=== PATIENT | female | born 1940 | race Caucasian/White ===

== ENCOUNTER 2018-05-17 15:54 | Outpatient (CLI) | payer MEDICARE, OTHER ==
[2018-05-17 16:44] LABS: BASOPHILS % (AUTO) 0.8 %; EOSINOPHILS # (AUTO) 0.1 10^3/uL (0.0-0.7); EOSINOPHILS % (AUTO) 1.1 %; LYMPHOCYTES # (AUTO) 1.5 10^3/uL (1.5-3.5); LYMPHOCYTES % (AUTO) 27.2 %; MEAN CORPUSCULAR HEMOGLOBIN 35.3 pg (27.0-31.0); MEAN CORPUSCULAR HGB CONC 34.6 g/dL (32.0-36.0); MEAN PLATELET VOLUME 8.3 fL (7.9-10.8); MONOCYTES # (AUTO) 0.4 10^3/uL (0.0-1.0); MONOCYTES % (AUTO) 7.8 %; NEUTROPHILS # (AUTO) 3.4 10^3/uL (1.5-6.6); NEUTROPHILS % (AUTO) 63.1 %; PLT - PLATELET COUNT 202 10^3/uL (130-450); RED BLOOD COUNT 3.68 10^6/uL (4.20-5.40); RED CELL DISTRIBUTION WIDTH 12.5 % (12.0-15.0); WHITE BLOOD COUNT 5.4 x10^3/uL (4.8-10.8)
[2018-05-17 17:03] LABS: ALBUMIN 4.3 g/dL (3.2-5.5); ALKALINE PHOSPHATASE 59 IU/L (42-121); ALT ALANINE AMINOTRANSFERASE 13 IU/L (10-60); AST ASPARTATE AMINOTRANSFERASE 20 IU/L (10-42); BILIRUBIN,TOTAL 0.9 mg/dL (0.2-1.0); BUN - BLOOD UREA NITROGEN 10 mg/dL (6-20); CALCIUM 9.3 mg/dL (8.5-10.3); CARBON DIOXIDE - CO2 24 mmol/L (21-32); CHLORIDE 99 mmol/L (101-111); CHOL/HDL RATIO 2.3 (<4.4); CHOLESTEROL 187 mg/dL; CREATININE 0.6 mg/dL (0.4-1.0); GFR - MDRD 97 (>89); GLUCOSE 84 mg/dL (70-100); HDL CHOLESTEROL 81 mg/dL; SODIUM 132 mmol/L (135-145); TOTAL PROTEIN 6.5 g/dL (6.7-8.2)
[2018-05-17 17:38] LABS: LDL CHOLESTEROL,DIRECT 97 mg/dL; LDLD/HDL RATIO 1.2 (<4.4)
== END 2018-05-17 15:55 | disposition home or self-care (01) ==
LOC: LAB 15:54
PROVIDERS: ATTEND Physician Assistant
DX: D75.89 Other specified diseases of blood and blood-forming organs (principal); M81.0 Age-related osteoporosis without current pathological fracture; Z01.812 Encounter for preprocedural laboratory examination; Z13.1 Encounter for screening for diabetes mellitus; Z13.220 Encounter for screening for lipoid disorders
CPT/HCPCS: 36415; 80053; 80061; 82306; 83721; 85025

== ENCOUNTER 2018-05-18 13:56 | Outpatient (CLI) | payer MEDICARE, OTHER | END 2018-05-18 13:57 | disposition home or self-care (01) | LOC: RT 13:56 | PROVIDERS: ATTEND Physician Assistant | DX: Z13.6 Encounter for screening for cardiovascular disorders (principal) | CPT/HCPCS: 93005 ==

== ENCOUNTER 2018-07-18 08:09 | Outpatient (CLI) | payer MEDICARE, OTHER ==
--- NOTE | 2018-07-24 15:31 | DEXA Report ---
Reason: OSTEOPOROSIS Procedure Date: 07/18/2018 Accession Number: [id number] / [id number] Procedure: DEX - Dexa Forearm CPT Code: FULL RESULT: EXAM: Dexa Spine and /or Hip, Dexa Forearm DATE: 07/18/2018 8:41 AM CLINICAL HISTORY: POST MENOPAUSAL TECHNIQUE: Dual energy x-ray absorptiometry (DXA) was performed on a [employer] System. Regions measured are the AP Spine, femoral neck, and if needed forearm. COMPARISON: None. In accordance with the International Society for Clinical Densitometry (ISCD) guidelines, data from previous exams may be reanalyzed using current recommendations and techniques. This is done to allow a more accurate basis for comparison with the current study. FINDINGS: The data for the lumbar spine is as follows: BMD (g/cm/cm) T-SCORE Z-SCORE REGION L1 0.927 -1.7 0.7 L2 0.942 -2.2 0.2 L3 1.032 -1.4 0.9 L4 1.115 -0.7 1.6 TOTAL 1.000 -1.5 0.8 NOTE: All evaluable vertebrae are used for classification The data for the Left forearm is as follows: BMD (g/cm/cm) T-SCORE Z-SCORE REGION 1/3 0.579 -3.4 -1.0 NOTE: The 33% radius of the nondominant forearm is used for classification. * Denotes significant change at the 95% confidence level. Denotes dissimilar scan types or analysis methods. IMPRESSION: THE WHO CLASSIFICATION BASED ON THE INTERNATIONAL REFERENCE STANDARD IS OSTEOPOROSIS. THE FRACTURE RISK IS HIGH. RECOMMENDATION: Patients with diagnosis of osteoporosis or osteopenia should have regular bone mineral density assessment. For those eligible for Medicare, routine testing is allowed once every 2 years. Testing frequency can be increased for patients who have rapidly progressing disease or for those who are receiving medical therapy to restore bone mass. COMMENT: World Health Organization (WHO) definitions for osteoporosis and osteopenia: NORMAL BMD: T-score at -1.0 or higher, fracture risk is low. OSTEOPENIA BMD: T-score between -1.0 and -2.5, fracture risk is increased. OSTEOPOROSIS BMD: T-score at -2.5 or lower, fracture risk is high. National Osteoporosis Foundation recommends: 1. Obtain adequate dietary calcium (at least 1200 mg per day) and vitamin D (400-800 international units per day). 2. Participate, as appropriate, in regular weightbearing and muscle-strengthening exercise. 3. Avoid tobacco use and reduce alcohol and caffeine intake. 4. For more detailed information see the website at www.NOF.org
--- NOTE | 2018-07-24 15:33 | DEXA Report ---
Reason: POST MENOPAUSAL Procedure Date: 07/18/2018 Accession Number: [id number] / [id number] Procedure: DEX - Dexa Spine and/or Hip CPT Code: FULL RESULT: FINDINGS: IMPRESSION: For results - please reference the DEXA Forearm report for 07/18/2018.
== END 2018-07-18 08:10 | disposition home or self-care (01) ==
LOC: DI 08:09
PROVIDERS: ATTEND Physician Assistant
DX: M81.0 Age-related osteoporosis without current pathological fracture (principal); Z78.0 Asymptomatic menopausal state
CPT/HCPCS: 77080; 77081

== ENCOUNTER 2019-09-28 08:01 | Outpatient (CLI) | payer MEDICARE, OTHER ==
[2019-09-28 08:26] LABS: CREATININE 0.8 mg/dL (0.4-1.0)
[2019-09-28 09:18] LABS: BASOPHILS # (AUTO) 0.1 10^3/uL (0.0-0.1); BASOPHILS % (AUTO) 1.3 %; EOSINOPHILS # (AUTO) 0.2 10^3/uL (0.0-0.7); EOSINOPHILS % (AUTO) 4.4 %; LYMPHOCYTES # (AUTO) 1.6 10^3/uL (1.5-3.5); LYMPHOCYTES % (AUTO) 35.7 %; MEAN CORPUSCULAR HEMOGLOBIN 33.3 pg (27.0-31.0); MEAN CORPUSCULAR HGB CONC 32.5 g/dL (32.0-36.0); MEAN CORPUSCULAR VOLUME 102.6 fL (81.0-99.0); MEAN PLATELET VOLUME 11.1 fL (7.9-10.8); MONOCYTES # (AUTO) 0.5 10^3/uL (0.0-1.0); MONOCYTES % (AUTO) 10.7 %; NEUTROPHILS # (AUTO) 2.2 10^3/uL (1.5-6.6); NEUTROPHILS % (AUTO) 47.2 %; PLT - PLATELET COUNT 185 10^3/uL (130-450); RED CELL DISTRIBUTION WIDTH 12.2 % (12.0-15.0); WHITE BLOOD COUNT 4.6 x10^3/uL (4.8-10.8)
== END 2019-09-28 08:02 | disposition home or self-care (01) ==
LOC: LAB 08:01
PROVIDERS: ATTEND Physician Assistant
DX: D75.89 Other specified diseases of blood and blood-forming organs (principal)
CPT/HCPCS: 36415; 80048; 85025

== ENCOUNTER 2019-10-13 16:00 | Emergency (ER) | payer MEDICARE, OTHER ==
--- NOTE | 2019-10-13 16:31 | ED Physician Documentation ---
PD HPI LOWER EXT INJURY - Stated complaint Stated Complaint: RT FOOT INJ - Chief complaint Chief Complaint: Ext Problem - History obtained from History obtained from: Patient - History of Present Illness PD HPI LOW EXT INJURY LOCATION: Right (She fell down 2 stairs last night and has an isolated right foot injury. She is able to walk and bear weight. Pain is minimal now because she took 2 oxycodone prior to arrival.) Review of Systems Constitutional: reports: Reviewed and negative Throat: reports: Reviewed and negative Cardiac: reports: Reviewed and negative PD PAST MEDICAL HISTORY - Past Medical History Cardiovascular: None Musculoskeletal: Other - Past Surgical History Past Surgical History: Yes General: Colonoscopy Ortho: Hip replacement, Shoulder arthroplasty, Other (no prior back surgery) - Present Medications Home Medications: Ambulatory Orders Medication Instructions Recorded Confirmed Estradiol [Vagifem] 10 each VG TIDWM 02/11/14 02/25/14 Oxycodone HCl/Acetaminophen 1 - 2 each PO Q6H PRN #14 tablet 10/13/19 [Percocet 5-325 mg Tablet] - Allergies Allergies/Adverse Reactions: Allergies Allergy/AdvReac Type Severity Reaction Status Date / Time No Known Drug Allergies Allergy Verified 10/13/19 16:04 - Social History Does the pt smoke?: No Smoking Status: Never smoker Does the pt drink ETOH?: Yes Does the pt have substance abuse?: No PD ED PE NORMAL - Vitals Vital signs reviewed: Yes - General General: Alert and oriented X 3, No acute distress - Extremities Extremities: Other (Focally tender over the cuboid of the right foot, no ankle or other foot tenderness.) - Neuro Neuro: Alert and oriented X 3, Normal speech Results - Vitals Vitals: Vital Signs - 24 hr 10/13/19 16:04 Temperature 36.5 C Heart Rate 72 Respiratory 14 Rate Blood Pressure 142/63 H O2 Saturation 100 Oxygen O2 Source Room air - Rads (name of study) 3v R foot Radiology: EMP read contemporaneously (Cuboid avulsion fracture) PD MEDICAL DECISION MAKING - ED course ED course: Clinical and radiographic cuboid fracture, placed in a boot. It appears to be a small chip fracture so I think she can walk and bear weight on it. Departure - Departure Disposition: 01 Home, Self Care Clinical Impression: Cuboid fracture Qualifiers: Encounter type: initial encounter Fracture type: closed Fracture alignment: nondisplaced Laterality: right Qualified Code(s): S92.214A - Nondisplaced fracture of cuboid bone of right foot, initial encounter for closed fracture Condition: Good Record reviewed to determine appropriate education?: Yes Instructions: ED Fx Foot Follow-Up: [facility] [Provider Group] - Within 1 week Prescriptions: Oxycodone HCl/Acetaminophen [Percocet 5-325 mg Tablet] 1 - 2 each PO Q6H PRN #14 tablet PRN Reason: pain Comments: Wear the boot when up and around, you do not need to wear it in bed or while bathing. Return for new or worsening symptoms. Elevate it. Do not drink or drive while taking narcotic pain medication. Note that many narcotic pain relievers also contain Tylenol/acetaminophen. Please ensure that your total dose of acetaminophen from all sources does not exceed 3 g (3000 mg) per day. You may get constipated while on this medication. Take a stool softener such as Colace twice a day while you are on it. Also add an opkr-jwp-qlrdffd laxative such as senna or MiraLAX on any day that you do not have a bowel movement. If you received a narcotic pain medication or sedative while in the emergency department, do not drive for the next 24 hours.
--- NOTE | 2019-10-13 17:04 | XRAY Report ---
Reason: foot inj Procedure Date: 10/13/2019 Accession Number: [id number] / [id number] Procedure: XR - Foot 3 View RT CPT Code: Final Report FULL RESULT: EXAM: RIGHT FOOT RADIOGRAPHY EXAM DATE: 10/13/2019 04:51 PM. CLINICAL HISTORY: Foot injury. Tripped down 2 steps. COMPARISON: XR FOOT COMPLETE MIN 3 VIEWS 12/20/2012 4:47 PM. TECHNIQUE: 3 views. FINDINGS: Bones: Lateral film demonstrates cortical disruption at the proximal plantar cuboid. Otherwise unremarkable for traumatic or destructive bone abnormality. Joints: Narrowing, sclerosis, and spurring at the first MTP joint. No subluxations. Soft Tissues: Unremarkable. IMPRESSION: 1. Concern for avulsion fracture, proximal plantar cuboid, seen on lateral view. 2. Chronic degenerative changes at the first MTP joint.. RADIA
[2019-10-13 17:37] VITALS: BP 133/62
== END 2019-10-13 17:40 | disposition home or self-care (01) ==
LOC: ED 16:00
DX: S92.214A Nondisplaced fracture of cuboid bone of right foot, initial encounter for closed fracture (principal); W10.9XXA Fall (on) (from) unspecified stairs and steps, initial encounter
CPT/HCPCS: 99283

== ENCOUNTER 2020-03-27 07:57 | Outpatient (CLI) | payer MEDICARE, OTHER ==
--- NOTE | 2020-03-27 12:39 | XRAY Report ---
PROCEDURE: Hips 2V BILAT INDICATIONS: BILAT ARTIFICIAL HIP, RT HIP PAIN TECHNIQUE: 4 views of the pelvis and bilateral hip were acquired. COMPARISON: None. FINDINGS: Bones: No fractures or dislocations. No suspicious bony lesions. The visualized pelvic ring appear s intact. The bilateral hip arthroplasties show no sign of device loosening or disruption and establi sh normal alignment. Soft tissues: No suspicious soft tissue calcifications or masses. IMPRESSION: Normal alignment established by bilateral total hip arthroplasty procedures, no evidence of device lo osening or disruption. Reviewed by: Sajan Medina MD on 03/27/2020 12:37 PM PDT Approved by: Sajan Medina MD on 03/27/2020 12:37 PM PDT Station ID: [id number]
== END 2020-03-27 07:58 | disposition home or self-care (01) ==
LOC: DI 07:57
PROVIDERS: ATTEND Registered Nurse
DX: M25.551 Pain in right hip (principal); Z96.643 Presence of artificial hip joint, bilateral
CPT/HCPCS: 73521

== ENCOUNTER 2020-10-17 07:00 | Outpatient (CLI) | payer MEDICARE, OTHER ==
[2020-10-17 07:56] LABS: BASOPHILS % (AUTO) 0.7 %; EOSINOPHILS # (AUTO) 0.2 10^3/uL (0.0-0.7); EOSINOPHILS % (AUTO) 4.2 %; HCT - HEMATOCRIT 42.1 % (37.0-47.0); HGB - HEMOGLOBIN 14.2 g/dL (12.0-16.0); LYMPHOCYTES # (AUTO) 1.6 10^3/uL (1.5-3.5); LYMPHOCYTES % (AUTO) 35.6 %; MEAN CORPUSCULAR HEMOGLOBIN 34.6 pg (27.0-31.0); MEAN CORPUSCULAR HGB CONC 33.7 g/dL (32.0-36.0); MEAN CORPUSCULAR VOLUME 102.7 fL (81.0-99.0); MONOCYTES # (AUTO) 0.5 10^3/uL (0.0-1.0); MONOCYTES % (AUTO) 10.7 %; NEUTROPHILS # (AUTO) 2.2 10^3/uL (1.5-6.6); NEUTROPHILS % (AUTO) 48.6 %; PLT - PLATELET COUNT 206 10^3/uL (130-450); RED CELL DISTRIBUTION WIDTH 11.6 % (12.0-15.0); WHITE BLOOD COUNT 4.5 x10^3/uL (4.8-10.8)
[2020-10-17 08:20] LABS: ALBUMIN 4.3 g/dL (3.2-5.5); ALBUMIN/GLOBULIN RATIO 1.7 (1.0-2.2); BILIRUBIN,TOTAL 0.8 mg/dL (0.2-1.0); CALCIUM 10.2 mg/dL (8.5-10.3); CREATININE 0.7 mg/dL (0.4-1.0); POTASSIUM 4.5 mmol/L (3.5-5.0); TOTAL PROTEIN 6.8 g/dL (6.7-8.2)
[2020-10-17 11:12] LABS: ESTIMATED AVERAGE GLUCOSE 105 mg/dL (70-100); HEMOGLOBIN A1c% 5.3 % (4.27-6.07)
== END 2020-10-17 23:59 | disposition home or self-care (01) ==
LOC: LAB 07:00
PROVIDERS: ATTEND Registered Nurse
DX: D75.89 Other specified diseases of blood and blood-forming organs (principal); R73.01 Impaired fasting glucose
CPT/HCPCS: 36415; 80053; 83036; 85025

== ENCOUNTER 2022-01-07 07:49 | Outpatient (CLI) | payer MEDICARE, OTHER ==
[2022-01-07 08:03] LABS: BASOPHILS # (AUTO) 0.1 10^3/uL (0.0-0.1); EOSINOPHILS # (AUTO) 0.2 10^3/uL (0.0-0.7); HCT - HEMATOCRIT 45.2 % (37.0-47.0); HGB - HEMOGLOBIN 15.2 g/dL (12.0-16.0); LYMPHOCYTES # (AUTO) 1.8 10^3/uL (1.5-3.5); MEAN CORPUSCULAR HEMOGLOBIN 33.9 pg (27.0-31.0); MEAN CORPUSCULAR HGB CONC 33.6 g/dL (32.0-36.0); MEAN CORPUSCULAR VOLUME 100.7 fL (81.0-99.0); MEAN PLATELET VOLUME 9.7 fL (7.9-10.8); MONOCYTES # (AUTO) 0.4 10^3/uL (0.0-1.0); MONOCYTES % (AUTO) 8.5 %; NEUTROPHILS # (AUTO) 2.6 10^3/uL (1.5-6.6); NEUTROPHILS % (AUTO) 51.3 %; PLT - PLATELET COUNT 252 10^3/uL (130-450); RED BLOOD COUNT 4.49 10^6/uL (4.20-5.40); RED CELL DISTRIBUTION WIDTH 12.2 % (12.0-15.0); WHITE BLOOD COUNT 5.1 x10^3/uL (4.8-10.8)
[2022-01-07 08:16] LABS: ALBUMIN 4.5 g/dL (3.2-5.5); ALBUMIN/GLOBULIN RATIO 1.5 (1.0-2.2); BILIRUBIN,TOTAL 0.8 mg/dL (0.2-1.0); CALCIUM 9.9 mg/dL (8.5-10.3); CREATININE 0.7 mg/dL (0.4-1.0); POTASSIUM 4.1 mmol/L (3.5-5.0); TOTAL PROTEIN 7.6 g/dL (6.7-8.2)
== END 2022-01-07 07:50 | disposition home or self-care (01) ==
LOC: LAB 07:49
PROVIDERS: ATTEND Registered Nurse
DX: M81.0 Age-related osteoporosis without current pathological fracture (principal); D75.89 Other specified diseases of blood and blood-forming organs
CPT/HCPCS: 36415; 80053; 82607; 82746; 85025

== ENCOUNTER 2022-06-28 09:05 | Emergency (ER) | payer MEDICARE, OTHER ==
--- NOTE | 2022-06-28 09:51 | XRAY Report ---
PROCEDURE: Ribs w/PA Chest LT INDICATIONS: rib pain post fall TECHNIQUE: 3 views of the left ribs were acquired, along with a single view chest. COMPARISON: None FINDINGS: Surgical changes and devices: Bilateral shoulder arthroplasties. Bones and chest wall: There is a left lateral ninth and possibly 10th rib fracture. No suspicious bon y lesions. Overlying soft tissues appear unremarkable. Lungs and pleura: Minimal to mild left and minimal right effusion. Mediastinum: Mediastinal contours appear normal. Heart size is normal. IMPRESSION: Left lateral ninth and possibly 10th rib fracture. Reviewed by: Nataliya Barber MD on 06/28/2022 9:49 AM PDT Approved by: Nataliya Barber MD on 06/28/2022 9:49 AM PDT Station ID: [id number]
--- NOTE | 2022-06-28 10:21 | ED Physician Documentation ---
PD HPI Fall - Stated complaint Stated Complaint: GLF/RIB PX - Chief complaint Chief Complaint: Resp - History obtained from History obtained from: Patient, Family - History of Present Illness Mechanism of injury: Slipped Fall distance: Standing position (walking down stairs and looked back to talk with spouse, missed a step and spun, fell and struck left posterolateral chest/r ibs. Has persisting pain with movement and breathing.) Timing - onset: How many days ago (2) Injury(ies) location: Chest, Back. No: Head, Neck, Abdomen Quality of pain: Pain, Sharp Associated symptoms: No: LOC, AMS, Neck pain, Weakness, Paresthesias, Nausea / vomiting Worsens with: Movement, Palpation, Other (breathing) Contributing factors: No: Anticoagulated Similar symptoms before: Has not had sx before Recently seen: Not recently seen Review of Systems Constitutional: denies: Fever Nose: denies: Rhinorrhea / runny nose, Congestion Throat: denies: Sore throat Cardiac: denies: Chest pain / pressure Respiratory: denies: Cough, Wheezing Skin: denies: Abrasion (s), Laceration (s) Musculoskeletal: denies: Neck pain Neurologic: denies: Focal weakness, Numbness, Altered mental status, Head injury PD PAST MEDICAL HISTORY - Past Medical History Cardiovascular: None Respiratory: None Neuro: None Endocrine/Autoimmune: None Musculoskeletal: Other - Past Surgical History Past Surgical History: Yes General: Colonoscopy Ortho: Hip replacement, Shoulder arthroplasty, Other (no prior back surgery) - Present Medications Home Medications: Ambulatory Orders Medication Instructions Recorded Confirmed Estradiol [Vagifem] 10 each VG TIDWM 02/11/14 06/28/22 Naproxen 250 mg PO TID 7 Days #20 tablet 06/28/22 oxyCODONE [Roxicodone] 5 mg PO Q6H PRN #20 tablet 06/28/22 tiZANidine [Zanaflex] 4 mg PO Q8H PRN #25 tablet 06/28/22 - Allergies Allergies/Adverse Reactions: Allergies Allergy/AdvReac Type Severity Reaction Status Date / Time No Known Drug Allergies Allergy Verified 10/13/19 16:04 - Social History Does the pt smoke?: No Smoking Status: Never smoker Does the pt drink ETOH?: Yes Does the pt have substance abuse?: No PD ED PE NORMAL - Vitals Vital signs reviewed: Yes - General General: Alert and oriented X 3, No acute distress, Well developed/nourished - HEENT HEENT: Atraumatic - Neck Neck: Supple, no meningeal sign, No bony TTP - Cardiac Cardiac: RRR, No murmur - Respiratory Respiratory: Clear bilaterally - Abdomen Abdomen: Soft, Non tender - Back Back: Other (tender left posterolateral lower ribs without crepitance nor bruising. ) - Derm Derm: Normal color, Warm and dry Results - Vitals Vitals: Vital Signs - 24 hr 06/28/22 06/28/22 09:16 12:00 Temperature 36.5 C Heart Rate 77 89 Respiratory 18 14 Rate Blood Pressure 108/77 127/69 O2 Saturation 95 96 Oxygen O2 Source Room air - Rads (name of study) chest xray Radiology: Prelim report reviewed (samll left effusion. fracture rib 9, possibly 10. no PTX.), See rad report chest CT Radiology: Prelim report reviewed (nondisplaced fractures left posterior lateral ribs 9,10,11,12.), See rad report PD MEDICAL DECISION MAKING - ED course Complexity details: reviewed results (CXR then CT showing left small effusion, no PTX. Rib fractures.), re-evaluated patient (patient is feeling improved with meds here in ED. has been 2 days since injury. We discussed the injuries could be criteria for admission. Patient states denies need for hospitalization, and clinically this is reasonable given her exam, vitals, and level of pain.), considered differential (CXR showing rib fracture and small effusion. Can get cT to better verify.), d/w patient Departure - Departure Disposition: 01 Home, Self Care Clinical Impression: Fall from slip, trip, or stumble Qualifiers: Encounter type: initial encounter Qualified Code(s): W01.0XXA - Fall on same level from slipping, tripping and stumbling without subsequent striking against object, initial encounter Chest wall contusion Qualifiers: Encounter type: initial encounter Laterality: left Qualified Code(s): S20.212A - Contusion of left front wall of thorax, initial encounter Ribs, multiple fractures Qualifiers: Encounter type: initial encounter Fracture type: closed Laterality: left Qualified Code(s): S22.42XA - Multiple fractures of ribs, left side, initial encounter for closed fracture Condition: Stable Record reviewed to determine appropriate education?: Yes Instructions: ED Fx Rib Follow-Up: Deedee Grubbs ARNP [Primary Care Provider] - Prescriptions: Naproxen 250 mg PO TID 7 Days #20 tablet oxyCODONE [Roxicodone] 5 mg PO Q6H PRN #20 tablet PRN Reason: Pain tiZANidine [Zanaflex] 4 mg PO Q8H PRN #25 tablet PRN Reason: Spasms Comments: Your CT scan shows a little bit of fluid around the base of the lung most likely some mild bleeding from the rib fractures. It does show 4 rib fractures numbers. 05/15/2011 and 12 on the left side. They are nondisplaced. Activity as tolerated. Purposeful deep breathing several times through the day. I would suggest some anti-inflammatory such as naproxen 250 mg 3 times daily. Add Tylenol 500 mg 4 times daily regularly for the next 7 to 10 days. Add oxycodone every 6 hours if needed for worse pain. You may also try a muscle relaxant tizanidine 2-3 times daily to help with spasming. That can help a lot with the pain as well. There should be decreasing in pain over 1-1/2 weeks or so as the initial healing and bruising have started. This will take a good 6 weeks for full healing. Recheck with your primary care later this week for a follow-up. Return to the ER if needed for uncontrolled symptoms despite the medication. I sent your prescriptions to the [facility] pharmacy here in [place]. I am prescribing a short course of narcotic pain medication for you. These are potentially dangerous and addictive medications that should be used carefully. These medications may constipate you. Take an gpvo-xfw-gqojcgc stool softener such as docusate twice daily with plenty of water while taking these medications. If you go 24 hours without a bowel movement, take fkwd-ucm-enkzzlz MiraLAX, per package instructions. Do not drink or drive while taking these medications. If you received narcotic or sedating medications while in the emergency department do not drive for 24 hours. Store this medication in a safe, secure place and out of reach of children. It is a violation of federal law to give or sell this medication to another person or to use in a manner other than prescribed. The ED will not refill narcotic prescriptions, including prescriptions lost or stolen. You can dispose of unwanted medications at the [facility]'s office or at several pharmacies such as [facility]. Discharge Date/Time: 06/28/22 12:22
[2022-06-28] MEDS ORDERED: ACETAMINOPHEN 325 MG TABLET PO STA (10:30)
[2022-06-28] MEDS ORDERED: oxyCODONE 5 MG TABLET PO STA (10:30)
[2022-06-28] MEDS ORDERED: NAPROXEN 250 MG TABLET PO STA (10:30)
--- NOTE | 2022-06-28 11:10 | CT Report ---
PROCEDURE: CHEST WO INDICATIONS: fall, left rib 9/? 10 fx, effusion on CXR. TECHNIQUE: Noncontrast 1mm axial images were acquired from the pulmonary apices to the posterior costophrenic an gles. Axial 5 mm soft tissue kernel reconstructions were performed as well as 8 mm axial MIP and cor onal and sagittal 5 mm reformations. For radiation dose reduction, the following was used: automate d exposure control, adjustment of mA and/or kV according to patient size. COMPARISON: None FINDINGS: Image quality: Excellent. Lungs and pleura: There is bibasilar atelectasis. A large calcification approximately 5 x 12 mm is se en in the right upper lobe. No pleural effusions or pneumothorax. Central and peripheral airways are patent and normal in caliber. Mediastinum: Heart size is normal. No pericardial effusion. No mediastinal adenopathy by size crit eria. The right hilar lymph nodes have multiple calcifications. Thoracic aorta and central pulmonary arteries are normal in size. Esophagus is normal in caliber. No hiatal hernia. Bones and chest wall: No suspicious bony lesions. No vertebral body compression fractures. No axil nerissa or supraclavicular adenopathy by size criteria. The thyroid is normal in size and there are no incidental findings. Abdomen: Visualized upper abdominal solid organs and bowel loops appear normal in the absence of con trast. IMPRESSION: 1. Nondisplaced fractures of the left ninth, 10th, 11th, and 12th ribs. 2. Bibasilar atelectasis. Reviewed by: Darshan Trevino on 06/28/2022 11:08 AM PDT Approved by: Darshan Trevino on 06/28/2022 11:08 AM PDT Station ID: [id number]
[2022-06-28 12:16] VITALS: BP 127/69
== END 2022-06-28 12:22 | disposition home or self-care (01) ==
LOC: ED 09:05
DX: S20.212A Contusion of left front wall of thorax, initial encounter (principal); S22.42XA Multiple fractures of ribs, left side, initial encounter for closed fracture; W10.8XXA Fall (on) (from) other stairs and steps, initial encounter; Y93.89 Activity, other specified; Y92.008 Other place in unspecified non-institutional (private) residence as the place of occurrence of the external cause
CPT/HCPCS: 71101; 71250; 99284; A9270

== ENCOUNTER 2023-04-06 15:08 | Outpatient (CLI) | payer MEDICARE, OTHER ==
--- NOTE | 2023-04-06 20:07 | DEXA Report ---
PROCEDURE: Dexa Spine and/or Hip INDICATIONS: OSTEOPOROSIS TECHNIQUE: Dual energy x-ray absorptiometry (DXA) was performed on a [employer] System. Regions measur ed are the AP Spine, femoral neck, and if needed forearm. COMPARISON: DEXA 07/18/2018 FINDINGS: Lumbar Spine: Bone Mineral Density 1.062 g/cm/cm,T score -1.0. Since the most recent prior study, there has been a statistically significant increase in bone mineral density by 6.2 percent. Left Forearm: Bone Mineral Density 0.682 g/cm/cm, T score -2.2. Since the most recent prior study, there has been a statistically significant increase in bone mineral density by 17.8 percent. (T score greater or equal to -1.0: NORMAL) (T score from -1.1 to -2.4: OSTEOPENIA) (T score less than or equal to -2.5 to: OSTEOPOROSIS) Impression: By WHO criteria, this patient has low bone density (osteopenia). Interval statistical increase in bone minteral density of the lumbar spine. Interval statistical incr ease in bone minteral density of the forearm. Patients with diagnosis of osteoporosis or osteopenia should have regular bone mineral density assess ment. For those eligible for Medicare, routine testing is allowed once every 2 years. Testing frequ ency can be increased for patients who have rapidly progressing disease or for those who are receivin g medical therapy to restore bone mass. Reviewed by: Unruly Schneider MD on 04/06/2023 8:06 PM PDT Approved by: Unruly Schneider MD on 04/06/2023 8:06 PM PDT Station ID: [id number]
== END 2023-04-06 15:09 | disposition home or self-care (01) ==
LOC: DI 15:08
PROVIDERS: ATTEND Registered Nurse
DX: M85.89 Other specified disorders of bone density and structure, multiple sites (principal)

== ENCOUNTER 2023-06-29 08:30 | Outpatient (CLI) | payer MEDICARE, OTHER ==
--- NOTE | 2023-06-29 13:30 | XRAY Report ---
PROCEDURE: Abdomen 2 View X-Ray INDICATIONS: SWALLOWED FOREIGN BODY TECHNIQUE: 2 views of the abdomen were acquired. COMPARISON: None. FINDINGS: Surgical changes and devices: None. Bowel: No pneumoperitoneum. The bowel gas pattern is normal. Moderate burden of stool throughout th e colon Soft tissues: No masses; visualized solid organ contours appear normal in size. High density possibl e foreign body projecting over the right pelvis measuring 1.3 x 0.6 cm. No suspicious abdominal calci fications. Bones: No suspicious bony abnormalities. Bilateral hip arthroplasties. IMPRESSION: Possible high density foreign body projecting over the right pelvis measuring 1.3 x 0.6 cm. Reviewed by: Luis F Mckeon MD on 06/29/2023 1:29 PM PDT Approved by: Luis F Mckeon MD on 06/29/2023 1:29 PM PDT Station ID: [id number]
== END 2023-06-29 08:31 | disposition home or self-care (01) ==
LOC: DI 08:30
PROVIDERS: ATTEND Nurse Practitioner Family
DX: T18.9XXA Foreign body of alimentary tract, part unspecified, initial encounter (principal)